=== PATIENT | male | born 2000 | race Caucasian/White ===

== ENCOUNTER 2022-07-31 08:23 | Emergency (ER) | payer BC, SELFPAY ==
[2022-07-31 08:37] VITALS: BP 125/71; PULSE 80; RESP 17; TEMP 36.8; O2SAT 98
--- NOTE | 2022-07-31 08:40 | ED.BACK ---
HPI - Back Pain/Injury General Chief Complaint: Back Pain/Injury Stated Complaint: back pain heard&felt a pop@ the gymx1 numb Larm Time Seen by Provider: 07/31/22 08:33 Source: patient Mode of arrival: Ambulatory Limitations: no limitations History of Present Illness HPI Narrative: 22-year-old otherwise healthy male who is here for evaluation of left-sided upper back/shoulder discomfort. He states yesterday he was in the gym. He was lifting something up and a rolling like motion. He states that he dropped it somewhat and then felt and heard a pop in his back. Has had discomfort in that area since then. Is having some tingling down his arm. Tenderness is located next to his shoulder blade on the left. No other injuries from the event. Related Data Previous Rx's Medication Instructions Recorded methocarbamol 500 mg tablet See Rx Instructions PO Q6-8H PRN 12/31/21 muscle spasm #30 tabs cyclobenzaprine 10 mg tablet 10 mg PO TID PRN muscle spasm #20 07/31/22 tabs tramadol 50 mg tablet 50 mg PO Q4H PRN pain #14 tabs 07/31/22 Allergies Allergy/AdvReac Type Severity Reaction Status Date / Time TOFRAMYCIN EYE DROPS Allergy Mild UNSURE Uncoded 07/31/22 08:40 Review of Systems Constitutional Constitutional: Reports system reviewed and no additional complaints, except as documented Musculoskeletal Musculoskeletal: Reports system reviewed and no additional complaints, except as documented Integumentary/Breasts Skin/Breast: Reports system reviewed and no additional complaints, except as documented Neurologic Neurologic: Reports system reviewed and no additional complaints, except as documented Patient History Medical History Healthy adult Social History Smoking Status: Never smoker Smoking Status: Never smoker alcohol intake frequency: other Substance Use Type: does not use Exam Initial Vital Signs Initial Vital Signs: Vital Signs Temperature 98.2 F 07/31/22 08:37 Pulse Rate 80 07/31/22 08:37 Respiratory Rate 17 07/31/22 08:37 Blood Pressure 125/71 07/31/22 08:37 Pulse Oximetry 98 07/31/22 08:37 Oxygen Delivery Method 07/31/22 08:37 Const General: cooperative, comfortable and No ill appearing HENNM Head: normal to inspection and normocephalic Skin General: no rashes or lesions noted Neuro General: patient alert, patient awake, patient oriented x3 and moves all extremities Sensory Exam: no sensory deficits noted Extrem Other: No right-sided discomfort. Patient has isolated tenderness over the rhomboid on the left with discomfort with activating the rhomboid. His left shoulder is unremarkable. His left lower back and upper back are unremarkable. Course Vital Signs Vital signs: Vital Signs - 8 hr 07/31/22 08:37 Temperature 98.2 F Pulse Rate 80 Respiratory Rate 17 Blood Pressure 125/71 Pulse Oximetry 98 Oxygen Delivery Method Room Air MDM - Back Pain/Injury MDM Narrative Medical decision making narrative: Patient has isolated discomfort over the rhomboid on the left. No skin changes. No fevers. No suspicion for fracture. He was placed in a sling for his comfort although he was instructed that he should tried immobilizer shoulder as much as possible. Medications were sent to the pharmacy of his choice. He was given return precautions. He expressed understanding agreement. Discharge Plan Departure Patient Disposition: Home Clinical Impression: Sprain of rhomboid Instructions: DI for Muscle Strain Activity Restrictions/Additional Instructions: The sling is for your comfort however I do recommend that you tried immobilizer shoulder as quickly as possible. Medications were sent to the pharmacy of your choice he can take them as needed and as directed. You can also use ice/massage and light stretching. Your symptoms should improve within the next several days. Prescriptions: New cyclobenzaprine 10 mg tablet 10 mg PO TID PRN (Reason: muscle spasm) Qty: 20 0RF tramadol 50 mg tablet 50 mg PO Q4H PRN (Reason: pain) Qty: 14 0RF No Action methocarbamol 500 mg tablet See Rx Instructions PO Q6-8H PRN (Reason: muscle spasm) Qty: 30 0RF Rx Instructions: 1-2 tablets PO every 6-8 hours PRN; Referrals: Miscellaneous,Doctor, MD [Primary Care Provider] -
[2022-07-31] MEDS: KETOROLAC 30 MG/ML VIAL IM (08:56)
--- NOTE | 2022-07-31 08:56 | PC.NURSE ---
pt declined sling states he has one at home
== END 2022-07-31 09:04 | disposition home or self-care (01) ==
LOC: ED 09:01
PROVIDERS: Emergency Provider Emergency Medicine
DX: S43.402A Unspecified sprain of left shoulder joint, initial encounter (principal)
CPT/HCPCS: 96372; 99283; J1885

== ENCOUNTER 2024-04-03 15:20 | Emergency (ER) | payer OTHER, SELFPAY ==
--- NOTE | 2024-04-03 15:25 | PC.NURSE ---
called immediately into triage and registration advised pt is in bathroom in which he ambulated to himself. Per registration, gave pt a urine specimen cup and pt refused.
[2024-04-03 15:30] VITALS: BP 133/83; PULSE 79; RESP 16; TEMP 36.2; O2SAT 99; BMI 33.0
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
[2024-04-03 17:17] VITALS: BP 133/83; PULSE 79; RESP 16; O2SAT 99
== END 2024-04-03 17:18 | disposition home or self-care (01) ==
PROVIDERS: Emergency Provider Registered Nurse
DX: M54.2 Cervicalgia (principal); V89.2XXA Person injured in unspecified motor-vehicle accident, traffic, initial encounter
CPT/HCPCS: 70450; 72125; 99283; 99284